=== PATIENT | male | born 1965 | race Caucasian/White ===

== ENCOUNTER 2017-08-08 08:50 | Inpatient (IN) | payer OTHER ==
[~2017-08-08] VITALS: Ht 195.6 cm; Wt 156.0 kg
[2017-08-08] MEDS ORDERED: MELOXICAM7.5 M1 (09:50)
[2017-08-08] MEDS ORDERED: FLE10 PO (09:50)
[2017-08-08 10:22] LABS: T3 TOTAL 0.44 ng/mL
[2017-08-08 10:26] LABS: CK-MB 3.5 ng/mL (0-3.6)
[2017-08-08 10:31] LABS: FREE T4 1.03 ng/dL (0.76-1.46)
[2017-08-08 10:33] LABS: FREE THYROXINE INDEX 1.7 ug/dL (1.4-4.5); T4(THYROXINE) 4.6 ug/dL (4.7-13.3)
[2017-08-08 10:37] LABS: ALKALINE PHOSPHATASE 66 U/L (46-116); ALT/SGPT 40 U/L (16-63); AST/SGOT 68 U/L (15-37); CALCIUM 8.4 mg/dL (8.5-10.1); CARBON DIOXIDE 16.3 mmol/L (21-32); CHLORIDE SERUM 88 mmol/L (98-107); CREATININE SERUM 1.2 mg/dL (0.7-1.3); GFR1 > 60 mL/min; GLUCOSE SERUM 179 mg/dL (74-106); POTASSIUM SERUM 3.9 mmol/L (3.5-5.1); TOTAL PROTEIN, SERUM 8.2 g/dL (6.4-8.2)
[2017-08-08 12:19] LABS: ERYTHROCYTE SED RATE 67 mm/hr (0-20)
[2017-08-08 12:21] LABS: PLATELET COUNT 146 x10^3mcL (130-400)
[2017-08-08 12:24] LABS: BASOPHIL % 0 % (0-2); RED CELL DISTRIBUTION WIDTH 14.8 % (11.5-14.5)
[2017-08-08 12:52] LABS: microscopic required? YES; urine erythrocyte 3+ (NEGATIVE)
[2017-08-08 12:54] LABS: AMPHETAMINE QUAL UR NONE DETECTED (NEG <=1000)
[2017-08-08 13:44] LABS: MAGNESIUM 1.9 mg/dL (1.8-2.4); PHOSPHOROUS 2.8 mg/dL (2.5-4.9)
[2017-08-08 13:46] LABS: CHOLESTEROL/HDL RATIO 2.8
[2017-08-08 14:43] LABS: SODIUM SERUM 121 mmol/L (136-145)
[2017-08-08 17:23] VITALS: BP 160/73
[2017-08-08 18:35] VITALS: BP 160/73
[2017-08-08 19:30] VITALS: BP 175/110
[2017-08-08 20:00] VITALS: BP 94/49
[2017-08-08 23:31] VITALS: BP 126/83
[2017-08-09 03:23] VITALS: BP 108/38
[2017-08-09 07:15] VITALS: BP 105/68
[2017-08-09 08:08] LABS: BASOPHIL % 0 % (0-2); PLATELET COUNT 124 x10^3mcL (130-400); RED CELL DISTRIBUTION WIDTH 15.1 % (11.5-14.5)
[2017-08-09 08:10] LABS: CALCIUM 7.7 mg/dL (8.5-10.1); CHLORIDE SERUM 94 mmol/L (98-107); CREATININE SERUM 0.9 mg/dL (0.7-1.3); GFR1 > 60 mL/min; GLUCOSE SERUM 123 mg/dL (74-106); PHOSPHOROUS 2.3 mg/dL (2.5-4.9); POTASSIUM SERUM 3.3 mmol/L (3.5-5.1); SODIUM SERUM 126 mmol/L (136-145)
[2017-08-09 11:45] VITALS: BP 129/75
[2017-08-09 15:45] VITALS: BP 161/83
[2017-08-09 20:00] VITALS: BP 112/71
[2017-08-09 20:12] LABS: CALCIUM 7.8 mg/dL (8.5-10.1); CARBON DIOXIDE 23.2 mmol/L (21-32); CHLORIDE SERUM 94 mmol/L (98-107); CREATININE SERUM 0.8 mg/dL (0.7-1.3); GFR1 > 60 mL/min; GLUCOSE SERUM 129 mg/dL (74-106); POTASSIUM SERUM 3.3 mmol/L (3.5-5.1); SODIUM SERUM 126 mmol/L (136-145)
[2017-08-10] VITALS (8 sets, daily range): BP systolic 104–155; BP diastolic 70–102
[2017-08-10 05:35] LABS: BASOPHIL % 0.1 % (0-2)
[2017-08-10 05:37] LABS: PLATELET COUNT 119 x10^3mcL (130-400); RED CELL DISTRIBUTION WIDTH 15.4 % (11.5-14.5)
[2017-08-10 05:49] LABS: CALCIUM 8.4 mg/dL (8.5-10.1); CARBON DIOXIDE 21.4 mmol/L (21-32); CHLORIDE SERUM 95 mmol/L (98-107); CREATININE SERUM 0.8 mg/dL (0.7-1.3); GFR1 > 60 mL/min; GLUCOSE SERUM 105 mg/dL (74-106); POTASSIUM SERUM 3.5 mmol/L (3.5-5.1); SODIUM SERUM 128 mmol/L (136-145)
[2017-08-11 03:40] VITALS: BP 137/83
[2017-08-11 05:41] LABS: BASOPHIL % 0 % (0-2); PLATELET COUNT 119 x10^3mcL (130-400); RED CELL DISTRIBUTION WIDTH 15.6 % (11.5-14.5)
[2017-08-11 05:59] LABS: CALCIUM 7.8 mg/dL (8.5-10.1); CHLORIDE SERUM 98 mmol/L (98-107); CREATININE SERUM 0.7 mg/dL (0.7-1.3); GFR1 > 60 mL/min; GLUCOSE SERUM 99 mg/dL (74-106); MAGNESIUM 1.9 mg/dL (1.8-2.4); PHOSPHOROUS 3.3 mg/dL (2.5-4.9); POTASSIUM SERUM 3.1 mmol/L (3.5-5.1); SODIUM SERUM 133 mmol/L (136-145)
[2017-08-11 07:36] VITALS: BP 123/74
[2017-08-11 11:22] VITALS: BP 127/79
[2017-08-11 16:26] VITALS: BP 129/71
[2017-08-11 18:00] VITALS: BP 138/87
[2017-08-11 20:41] VITALS: BP 109/73
[2017-08-12] VITALS: BP 125/92
[2017-08-12 05:22] VITALS: BP 164/95
[2017-08-12 06:08] LABS: PLATELET COUNT 154 x10^3mcL (130-400)
[2017-08-12 06:13] LABS: BASOPHIL % 0 % (0-2); RED CELL DISTRIBUTION WIDTH 15.8 % (11.5-14.5)
[2017-08-12 06:25] LABS: CALCIUM 8.5 mg/dL (8.5-10.1); CHLORIDE SERUM 98 mmol/L (98-107); CREATININE SERUM 0.6 mg/dL (0.7-1.3); GFR1 > 60 mL/min; GLUCOSE SERUM 145 mg/dL (74-106); MAGNESIUM 1.9 mg/dL (1.8-2.4); PHOSPHOROUS 4.1 mg/dL (2.5-4.9); POTASSIUM SERUM 3.5 mmol/L (3.5-5.1); SODIUM SERUM 133 mmol/L (136-145)
[2017-08-12 08:53] LABS: RED BLOOD CELLS 3.68 M/mm3 (4.52-5.90)
[2017-08-12 10:00] VITALS: BP 128/94
[2017-08-12 12:48] LABS: IRON 38 ug/dL (65-170)
[2017-08-12 12:55] LABS: TOTAL IRON BINDING CAPACITY 168 ug/dL (250-450)
[2017-08-12 19:22] VITALS: BP 137/78
[2017-08-12 19:25] VITALS: BP 129/79
[2017-08-13 05:38] VITALS: BP 136/92
[2017-08-13 06:50] LABS: PLATELET COUNT 206 x10^3mcL (130-400)
[2017-08-13 06:59] LABS: BASOPHIL % 0 % (0-2); RED CELL DISTRIBUTION WIDTH 15.4 % (11.5-14.5)
[2017-08-13 07:12] LABS: CALCIUM 8.5 mg/dL (8.5-10.1); CARBON DIOXIDE 26.8 mmol/L (21-32); CHLORIDE SERUM 98 mmol/L (98-107); CREATININE SERUM 0.7 mg/dL (0.7-1.3); GFR1 > 60 mL/min; GLUCOSE SERUM 156 mg/dL (74-106); PHOSPHOROUS 3.5 mg/dL (2.5-4.9); POTASSIUM SERUM 3.2 mmol/L (3.5-5.1); SODIUM SERUM 135 mmol/L (136-145)
[2017-08-13 09:07] VITALS: BP 138/92
[2017-08-13 15:06] VITALS: BP 138/92
[2017-08-13 17:48] VITALS: BP 144/99
[2017-08-13 19:15] VITALS: BP 131/87
[2017-08-14 05:31] VITALS: BP 120/94
[2017-08-14 06:53] LABS: BASOPHIL % 0.2 % (0-2); PLATELET COUNT 281 x10^3mcL (130-400)
[2017-08-14 07:08] LABS: CALCIUM 8.5 mg/dL (8.5-10.1); CARBON DIOXIDE 24.2 mmol/L (21-32); CHLORIDE SERUM 101 mmol/L (98-107); CREATININE SERUM 0.7 mg/dL (0.7-1.3); GFR1 > 60 mL/min; GLUCOSE SERUM 143 mg/dL (74-106); MAGNESIUM 2.2 mg/dL (1.8-2.4); PHOSPHOROUS 3.3 mg/dL (2.5-4.9); POTASSIUM SERUM 3.3 mmol/L (3.5-5.1); SODIUM SERUM 136 mmol/L (136-145)
[2017-08-14 07:26] LABS: RED CELL DISTRIBUTION WIDTH 15.2 % (11.5-14.5)
[2017-08-14 08:22] VITALS: BP 140/102
[2017-08-14 12:45] VITALS: BP 147/88
[2017-08-14 13:42] VITALS: BP 115/89
[2017-08-14 18:12] VITALS: BP 129/96
[2017-08-14 21:28] VITALS: BP 127/100
[2017-08-15 01:03] VITALS: BP 137/101
[2017-08-15 04:30] VITALS: BP 133/96
[2017-08-15 05:05] LABS: BASOPHIL % 0.2 % (0-2); PLATELET COUNT 289 x10^3mcL (130-400)
[2017-08-15 05:09] LABS: RED CELL DISTRIBUTION WIDTH 15.1 % (11.5-14.5)
[2017-08-15 05:11] LABS: CALCIUM 8.6 mg/dL (8.5-10.1); CARBON DIOXIDE 23.4 mmol/L (21-32); CHLORIDE SERUM 98 mmol/L (98-107); CREATININE SERUM 0.7 mg/dL (0.7-1.3); GFR1 > 60 mL/min; GLUCOSE SERUM 126 mg/dL (74-106); PHOSPHOROUS 3.2 mg/dL (2.5-4.9); POTASSIUM SERUM 3.2 mmol/L (3.5-5.1); SODIUM SERUM 133 mmol/L (136-145)
[2017-08-15 09:40] VITALS: BP 122/82
[2017-08-15 12:30] VITALS: BP 91/60; BP 96/60
[2017-08-15 13:45] VITALS: BP 105/74
[2017-08-15 17:42] VITALS: BP 113/86
[2017-08-15 20:06] VITALS: Ht 195.6 cm; Wt 156.0 kg
[2017-08-16 03:46] LABS: CARBON DIOXIDE 23.7 mmol/L (21-32); CHLORIDE SERUM 97 mmol/L (98-107); CREATININE SERUM 0.7 mg/dL (0.7-1.3); GFR1 > 60 mL/min; GLUCOSE SERUM 105 mg/dL (74-106); MAGNESIUM 1.7 mg/dL (1.8-2.4); PHOSPHOROUS 3.3 mg/dL (2.5-4.9); SODIUM SERUM 131 mmol/L (136-145)
[2017-08-16 04:15] VITALS: BP 128/96
[2017-08-16 04:26] LABS: BASOPHIL % 0 % (0-2); PLATELET COUNT 307 x10^3mcL (130-400); RED CELL DISTRIBUTION WIDTH 15.2 % (11.5-14.5)
[2017-08-16 09:09] VITALS: BP 112/76
[2017-08-16 09:53] VITALS: BP 112/76
[2017-08-16 13:50] VITALS: BP 109/79
[2017-08-16 22:00] VITALS: BP 114/86
[2017-08-17 06:10] VITALS: BP 112/87
[2017-08-17 06:13] LABS: BASOPHIL % 0.1 % (0-2); PLATELET COUNT 250 x10^3mcL (130-400)
[2017-08-17 06:28] LABS: CALCIUM 8.5 mg/dL (8.5-10.1); CARBON DIOXIDE 23.8 mmol/L (21-32); CHLORIDE SERUM 99 mmol/L (98-107); CREATININE SERUM 0.7 mg/dL (0.7-1.3); GFR1 > 60 mL/min; GLUCOSE SERUM 109 mg/dL (74-106); MAGNESIUM 2.2 mg/dL (1.8-2.4); PHOSPHOROUS 3.1 mg/dL (2.5-4.9); POTASSIUM SERUM 3.2 mmol/L (3.5-5.1); SODIUM SERUM 132 mmol/L (136-145)
[2017-08-17 07:03] LABS: RED CELL DISTRIBUTION WIDTH 15.3 % (11.5-14.5)
[2017-08-17 08:22] VITALS: BP 111/77
[2017-08-17 16:44] VITALS: BP 109/73
[2017-08-17 21:22] VITALS: BP 89/65
[2017-08-18] VITALS (8 sets, daily range): BP systolic 85–129; BP diastolic 55–88
[2017-08-18 07:41] LABS: BASOPHIL % 0.3 % (0-2); PLATELET COUNT 256 x10^3mcL (130-400)
[2017-08-18 07:47] LABS: RED CELL DISTRIBUTION WIDTH 14.9 % (11.5-14.5)
[2017-08-18 07:53] LABS: CALCIUM 7.9 mg/dL (8.5-10.1); CARBON DIOXIDE 22.2 mmol/L (21-32); CHLORIDE SERUM 98 mmol/L (98-107); CREATININE SERUM 0.6 mg/dL (0.7-1.3); GFR1 > 60 mL/min; GLUCOSE SERUM 101 mg/dL (74-106); MAGNESIUM 1.8 mg/dL (1.8-2.4); POTASSIUM SERUM 3.2 mmol/L (3.5-5.1); SODIUM SERUM 132 mmol/L (136-145)
[2017-08-19] VITALS (7 sets, daily range): BP systolic 100–121; BP diastolic 61–86
[2017-08-19 06:41] LABS: BASOPHIL % 0.4 % (0-2); PLATELET COUNT 247 x10^3mcL (130-400)
[2017-08-19 06:42] LABS: RED CELL DISTRIBUTION WIDTH 15.4 % (11.5-14.5)
[2017-08-19 07:10] LABS: CALCIUM 8.5 mg/dL (8.5-10.1); CARBON DIOXIDE 24.5 mmol/L (21-32); CHLORIDE SERUM 99 mmol/L (98-107); CREATININE SERUM 0.7 mg/dL (0.7-1.3); GFR1 > 60 mL/min; GLUCOSE SERUM 113 mg/dL (74-106); MAGNESIUM 1.6 mg/dL (1.8-2.4); PHOSPHOROUS 3.5 mg/dL (2.5-4.9); POTASSIUM SERUM 3.5 mmol/L (3.5-5.1); SODIUM SERUM 132 mmol/L (136-145)
[2017-08-19 13:49] LABS: T3 TOTAL 0.69 ng/mL
[2017-08-19 13:51] LABS: FREE T4 1.46 ng/dL (0.76-1.46); FREE THYROXINE INDEX 2.6 ug/dL (1.4-4.5); T4(THYROXINE) 6.5 ug/dL (4.7-13.3)
[2017-08-20 05:56] VITALS: BP 101/74
[2017-08-20 06:47] LABS: BASOPHIL % 0.6 % (0-2); PLATELET COUNT 260 x10^3mcL (130-400)
[2017-08-20 06:49] LABS: RED CELL DISTRIBUTION WIDTH 15.3 % (11.5-14.5)
[2017-08-20 07:11] LABS: CALCIUM 8.3 mg/dL (8.5-10.1); CARBON DIOXIDE 25.6 mmol/L (21-32); CHLORIDE SERUM 96 mmol/L (98-107); CREATININE SERUM 0.7 mg/dL (0.7-1.3); GFR1 > 60 mL/min; GLUCOSE SERUM 105 mg/dL (74-106); MAGNESIUM 1.5 mg/dL (1.8-2.4); PHOSPHOROUS 4.4 mg/dL (2.5-4.9); POTASSIUM SERUM 3.6 mmol/L (3.5-5.1); SODIUM SERUM 132 mmol/L (136-145)
[2017-08-20 10:13] VITALS: BP 108/64
[2017-08-20 14:20] VITALS: BP 116/63
[2017-08-20 16:20] VITALS: BP 116/63
[2017-08-20] MEDS ORDERED: FLE10 PO (16:25)
[2017-08-20] MEDS ORDERED: LIPI20 PO (16:27)
[2017-08-20] MEDS ORDERED: XARELTO15 M1 PO (16:27)
[2017-08-20] MEDS ORDERED: DILTIAZEM30 M1 PO (16:28)
[2017-08-20] MEDS ORDERED: LOP50 PO (16:28)
[2017-08-20] MEDS ORDERED: MOBIC PO (16:28)
[2017-08-20] MEDS ORDERED: LIB25 PO (16:29)
[2017-08-20] MEDS ORDERED: SERTRALINE50 M1 PO (16:29)
[2017-08-20] MEDS ORDERED: MAG PO (16:30)
[2017-08-20] MEDS ORDERED: LAC PO (16:30)
[2017-08-20] MEDS ORDERED: FOL1 PO (16:31)
[2017-08-20] MEDS ORDERED: THERA TABS1 TAB PO (16:31)
[2017-08-20] MEDS ORDERED: THI100 PO (16:31)
== END 2017-08-20 19:57 | DRG 720 ==
LOC: ED 08:50 → IC 12:02 → DU 08-11 17:54
PROVIDERS: Family Medicine; Family Medicine Sports Medicine; Specialist; Student in an Organized Health Care Education/Training Program
PROC: 02HV33Z Insertion of Infusion Device into Superior Vena Cava, Percutaneous Approach (ICD-10-PCS; principal; 2017-08-09)
DX: A40.9 Streptococcal sepsis, unspecified (principal); I26.99 Other pulmonary embolism without acute cor pulmonale; N17.0 Acute kidney failure with tubular necrosis; J96.01 Acute respiratory failure with hypoxia; R65.21 Severe sepsis with septic shock; M62.82 Rhabdomyolysis; E43 Unspecified severe protein-calorie malnutrition; J15.4 Pneumonia due to other streptococci; Z68.41 Body mass index [BMI] 40.0-44.9, adult; E83.51 Hypocalcemia; I48.91 Unspecified atrial fibrillation; B35.1 Tinea unguium; E51.2 Wernicke's encephalopathy; L03.116 Cellulitis of left lower limb; E87.1 Hypo-osmolality and hyponatremia; I10 Essential (primary) hypertension; R74.0 Nonspecific elevation of levels of transaminase and lactic acid dehydrogenase [LDH]; R31.9 Hematuria, unspecified; K80.20 Calculus of gallbladder without cholecystitis without obstruction; Y90.9 Presence of alcohol in blood, level not specified; E66.9 Obesity, unspecified; Z99.81 Dependence on supplemental oxygen; Z80.41 Family history of malignant neoplasm of ovary; Z80.42 Family history of malignant neoplasm of prostate; F10.239 Alcohol dependence with withdrawal, unspecified; Z71.41 Alcohol abuse counseling and surveillance of alcoholic; R13.10 Dysphagia, unspecified; E87.6 Hypokalemia; E83.42 Hypomagnesemia; D64.9 Anemia, unspecified
CPT/HCPCS: 36556; 36600; 82962; 83880; 84439; 92610-GN; 97110-GP; 97116-GP; 97530-GP; C9113; G0480; J0132; J0153; J0696; J1170; J1630; J1642; J1644; J1885; J1940; J2060; J2543; J2916; J2920; J3411; J3430; J3475; J3480; J3486; J3490; J7030; J7050; J7620; Q0092; Q9967

== ENCOUNTER 2018-10-20 11:41 | Emergency (ER) | payer OTHER ==
[~2018-10-20] VITALS: Ht 195.6 cm; Wt 154.2 kg
[~2018-10-20 11:41] MED LIST: DILTIAZEM30 M1 PO; FLE10 PO; FOL1 PO; LAC PO; LIB25 PO; LIPI20 PO; LOP50 PO; MAG PO; MELOXICAM7.5 M1; MOBIC PO; SERTRALINE50 M1 PO; THERA TABS1 TAB PO; THI100 PO; XARELTO15 M1 PO
[2018-10-20 11:52] VITALS: Ht 195.6 cm; Wt 154.2 kg
[2018-10-20 14:40] LABS: BASOPHIL % 0.3 % (0-2); PLATELET COUNT 243 x10^3mcL (130-400)
[2018-10-20 14:41] LABS: RED CELL DISTRIBUTION WIDTH 16.3 % (11.5-14.5)
[2018-10-20 14:55] LABS: CARBON DIOXIDE 29.5 mmol/L (21-32); CHLORIDE SERUM 87 mmol/L (98-107); CREATININE SERUM 0.8 mg/dL (0.7-1.3); GFR1 > 60 mL/min; GLUCOSE SERUM 98 mg/dL (74-106); POTASSIUM SERUM 4.4 mmol/L (3.5-5.1)
[2018-10-20 14:58] LABS: ALBUMIN 3.4 g/dL (3.4-5.0); BILIRUBIN DIRECT 0.46 mg/dL (0.0-0.2)
[2018-10-20 15:05] LABS: SODIUM SERUM 121 mmol/L (136-145)
[2018-10-20 16:10] VITALS: BP 120/78
== END 2018-10-20 16:10 | disposition home or self-care (01) ==
LOC: ED 11:41
PROVIDERS: Emergency Medicine
DX: R60.0 Localized edema (principal); K70.30 Alcoholic cirrhosis of liver without ascites; I11.0 Hypertensive heart disease with heart failure; I50.9 Heart failure, unspecified; E78.00 Pure hypercholesterolemia, unspecified
CPT/HCPCS: 36415; 83880; Q0092

== ENCOUNTER 2019-06-21 21:45 | Inpatient (IN) | payer OTHER ==
[~2019-06-21] VITALS: Ht 195.6 cm; Wt 163.9 kg
--- NOTE | 2019-06-21 21:47 | NUR ---
PT TAKEN TO RM 5 FOR BEDSIDE TRIAGE.
--- NOTE | 2019-06-21 22:06 | NUR ---
CONSENT FOR BLOOD TRANSFUSION SIGNED AND IN CHART.
--- NOTE | 2019-06-21 22:11 | NUR ---
PT PRESENTS TO ED WITH C/C HEMOPTYSIS X1 EPISODE 30 MIN WELDING MACHINE OPERATOR ARC. BRIGHT RED BLOOD. PT REPORTS FEELINGS OF DIZZINESS X1 DAY. STS "I KIND OF HAD DARK STOOL YESTERDAY BUT IM NOT SURE." PT IS AAOX4. RESP E/U. DENIES ACUTE WORSENING SOB. REPORTS HX OF CHF AND STS "I AM ALWAYS SHORT OF BREATH." PT APPEARS PALE, NORMAL SKIN TONE PER FAMILY. UNABLE TO STATE HOW MANY EPISODES OF DARK STOOL. PT WAS BROUGHT IN BY WHEELCHAIR FROM THE PARKING LOT. APPEARS GENERALLY WEAK, PT DENIES WEAKNESS. BLE WOUNDS WITH DRESSINGS INTACT. PIV INITIATED TO RAC, 20G. CONNECTED TO FULL CM. DR TORRES AT BEDSIDE FOR MSE.
--- NOTE | 2019-06-21 22:14 | NUR ---
PT IS ON BLOOD THINNER, XARELTO. DR TORRES AWARE.
--- NOTE | 2019-06-21 22:15 | NUR ---
LAB AT BEDSIDE.
[2019-06-21 22:19] LABS: BASOPHIL % 0.5 % (0-2); PLATELET COUNT 144 x10^3mcL (130-400)
[2019-06-21 22:21] LABS: RED CELL DISTRIBUTION WIDTH 15.6 % (11.5-14.5)
--- NOTE | 2019-06-21 22:21 | NUR ---
XRAY AT BEDSIDE.
[2019-06-21 22:39] LABS: ALBUMIN 3.2 g/dL (3.4-5.0); ALKALINE PHOSPHATASE 71 U/L (46-116); ALT/SGPT 24 U/L (16-63); AST/SGOT 33 U/L (15-37); BILIRUBIN TOTAL 0.7 mg/dL (0.20-1.00); CALCIUM 7.9 mg/dL (8.5-10.1); CARBON DIOXIDE 25.9 mmol/L (21-32); CHLORIDE SERUM 87 mmol/L (98-107); CREATININE SERUM 0.8 mg/dL (0.7-1.3); GFR1 > 60 mL/min; GLUCOSE SERUM 141 mg/dL (74-106); TOTAL PROTEIN, SERUM 7.9 g/dL (6.4-8.2)
[2019-06-21 22:41] LABS: SODIUM SERUM 123 mmol/L (136-145)
--- NOTE | 2019-06-21 22:46 | NUR ---
PATIENT TAKEN TO CT.
[2019-06-21] MEDS ORDERED: DILTIAZEM HCL240 MG PO (22:54)
--- NOTE | 2019-06-21 23:26 | NUR ---
PATIENT INSTRUCTED MULTIPLE TIMES NOT TO STAND UP AND URINATE DUE TO RISK OF FALLING. PT REFUSES TO SIT/LAY DOWN AND URINATE. DR TORRES AWARE. SON AT BEDSIDE TO ASSIST PATIENT TO STAND AGAINST ADVICE.
--- NOTE | 2019-06-21 23:41 | NUR ---
DR TORRES AT BEDSIDE TO UPDATE PATIENT.
--- NOTE | 2019-06-22 00:38 | NUR ---
PT HAD VOMITING EPISODE X2 OF APPROX 250CC FRESH BLOOD WITH LARGE CLOTS. DR TORRES AT BEDSIDE. PT STS "WOW THAT WAS A LOT OF BLOOD." PT REMAINS AAOX4. NG TUBE PLACED IN LEFT NARE PER DR TORRES VERBAL ORDER. AMELIE RN PLACED NG TUBE, CONFIRMED PLACEMENT AUSCULTATION X2 RN'S. NG TUBE CONNECTED TO CONTINUOUS SUCTION, BRIGHT RED BLOOD OUTPUT. PT GOWN CHANGED AND PATIENT CLEANED UP. PATIENT REFUSED INTUBATION PER DR TORRES RECOMMENDATION. FAMILY REMAINS AT BEDSIDE. WILL CONTINUE TO MONITOR CLOSELY.
--- NOTE | 2019-06-22 00:43 | NUR ---
XRAY AT BEDSIDE.
--- NOTE | 2019-06-22 01:05 | NUR ---
PT INSTRUCTED HE CANNOT URINATE STANDING UP. PT CONTINUES TO ASK "WHY" PT INSTRUCTED ON SAFETY. BOTH SIDE RAILS UP AT THIS TIME. FAMILY AT BEDSIDE. PT IN PLAIN VIEW. WILL CONTINUE TO CLOSELY MONITOR.
[2019-06-22 01:12] LABS: BASOPHIL % 0.3 % (0-2); PLATELET COUNT 133 x10^3mcL (130-400); RED CELL DISTRIBUTION WIDTH 15.6 % (11.5-14.5)
[2019-06-22 01:30] LABS: CHOLESTEROL/HDL RATIO 2.5
--- NOTE | 2019-06-22 02:28 | NUR ---
PT TRANSFERED FROM ED BY RN VIA [facility]LVESTER. SR
[2019-06-22 03:59] VITALS: BP 110/68
[2019-06-22 05:34] LABS: CALCIUM 7.9 mg/dL (8.5-10.1); CARBON DIOXIDE 24.4 mmol/L (21-32); CHLORIDE SERUM 89 mmol/L (98-107); CREATININE SERUM 0.7 mg/dL (0.7-1.3); GFR1 > 60 mL/min; GLUCOSE SERUM 141 mg/dL (74-106); MAGNESIUM 1.7 mg/dL (1.8-2.4); PHOSPHOROUS 3.4 mg/dL (2.5-4.9); POTASSIUM SERUM 4.6 mmol/L (3.5-5.1)
[2019-06-22 05:37] LABS: SODIUM SERUM 123 mmol/L (136-145)
[2019-06-22 05:48] LABS: BASOPHIL % 0.2 % (0-2); PLATELET COUNT 122 x10^3mcL (130-400); RED CELL DISTRIBUTION WIDTH 15.3 % (11.5-14.5)
[2019-06-22 07:15] VITALS: BP 111/62
--- NOTE | 2019-06-22 07:40 | NUR ---
1ST UNIT OF PRBC'S VERIFIED BY 2RNS. SEE BLOOD BANK FOR DETAILS. WILL CONT TO MONITOR FOR ADVERSE REACTIONS
--- NOTE | 2019-06-22 07:55 | NUR ---
15MIN POST TRANSFUSION ASSESSMENT WITH NO ADVERSE REACTIONS. WILL CONT TO MONITOR/ASSESS
--- NOTE | 2019-06-22 09:04 | NUR ---
INSERTED NEW PIV TO L HAND 18G. NO S/SX OF INFILTRATION, GOOD BLOOD RETURN, FLUSHES WELL.
--- NOTE | 2019-06-22 09:29 | NUR ---
DR. GRAVES AND RESIDENTS AT BEDSIDE FOR PT ROUNDS AT THIS TIME. NURSING UPDATES. NO NEW ORDERS.
--- NOTE | 2019-06-22 09:30 | NUR ---
ULTRASOUND AT BEDSIDE
[2019-06-22 10:35] LABS: microscopic required? NO
[2019-06-22 11:11] LABS: urine erythrocyte NEGATIVE (NEGATIVE)
--- NOTE | 2019-06-22 11:30 | NUR ---
PATIENT'S NGT NOTED TO BE OUT OF PLACE. NGT REMOVED AND TO BE REINSERTED.
[2019-06-22 11:33] LABS: AMPHETAMINE QUAL UR NONE DETECTED (See below)
--- NOTE | 2019-06-22 11:37 | NUR ---
PT HAVING A PANIC ATTACK AT THIS TIME AND TRYING TO GRAB CONFERENCE SERVICES MANAGER WHILE TRYING TO INSERT NGT. 2MG ATIVAN IVP GIVEN AT THIS TIME.
[2019-06-22 11:48] VITALS: BP 102/69
--- NOTE | 2019-06-22 11:57 | NUR ---
TELEPHONED PATIENT'S MOTHER RANI AT PATIENT'S REQUEST FOR "EMOTIONAL SUPPORT." RANI STATED THAT SHE WILL BE COMING BACK SOON. PATIENT MADE AWARE.
[2019-06-22 12:16] LABS: BASOPHIL % 0 % (0-2); PLATELET COUNT 123 x10^3mcL (130-400); RED CELL DISTRIBUTION WIDTH 15.9 % (11.5-14.5)
--- NOTE | 2019-06-22 12:50 | NUR ---
2ND UNIT OF PRBC'S VERIFIED BY PRIMARY RN AND FLOSSER. SEE BLOOD BANK SHEET FOR DETAILS. PRBC BEING INITIATED AT THIS TIME.
--- NOTE | 2019-06-22 13:05 | NUR ---
15 MIN POST TRANSFUSION ASSESSMENT. NO ADVERSE REACTIONS NOTED. SEE BLOOD BANK SHEET FOR MORE DETAILS. WILL CONT TO MONITOR AND ASSESS
--- NOTE | 2019-06-22 13:30 | NUR ---
PATIENT'S MOTHER, SHANTELL LUCAS AND MYSELF AT BEDSIDE TO ATTEMPT PLACEMENT OF NGT. PATIENT IN UPRIGHT POSITION. ATTEMPTED TO INSERT #16 CZECH NGT TO LEFT NARE. PATIENT BEGAN COUGHING AND GAGGING AND THROWING ARMS AROUND IN SPITE OF HIS MOTHER AND NURSING ATTEMPTING TO CALM HIM. NGT PLACEMENT UNSUCCESSFUL AGAIN. WILL CONTINUE TO MONITOR.
--- NOTE | 2019-06-22 14:38 | NUR ---
ECHOCARDIOGRAM PENDING-NURSE WITH PATIENT
--- NOTE | 2019-06-22 15:01 | NUR ---
PT ANXIOUS AND RESTLESS. 2MG ATIVAN IVP GIVEN AT THIS TIME
[2019-06-22 15:24] VITALS: BP 135/89
--- NOTE | 2019-06-22 15:26 | NUR ---
PT SLEEPING AND MOUTH BREATHING. PT PLACED ON 3L NASAL CANNULA.
--- NOTE | 2019-06-22 16:05 | NUR ---
DR DIALLO (PODIATRY) AT BEDSIDE TO ASSESS PATIENT'S BLE'S. NEW DRESSINGS APPLIED BY DR DIALLO.
--- NOTE | 2019-06-22 18:21 | NUR ---
PT RESTING IN BED W/ BOTH EYES CLOSED. NO S/S OF ACUTE DISTRESS. VS STABLE. O2 SAT 99% ON 2LNC. BP 123/72. HR 112. NO C/O PAIN. CALM/COOPERATIVE AT THIS TIME. IVS WNL. IV FLUIDS FLOWING PER AUG. HOB ELEVATED. BED IN LOW POSITION. CALL LIGHT WITHIN REACH. WILL ENDORSE TO ONCOMING SHIFT.
--- NOTE | 2019-06-22 18:24 | NUR ---
REPORTED TO DR LICONA MOST RECENT H & H. PER DR LICONA, TRANSFUSE 1 MORE UNIT OF PRBC'S. WILL RECHECK LABS AT 0500 ON 06/23/19.
--- NOTE | 2019-06-22 19:20 | NUR ---
RECEIVED PT FROM PREVIOUS SHIFT NURSE. PT AOX4, DENIES WAGNER/DIZZINESS. ON MONITOR #3, READING ST/AFIB, HR 114, DENIES CP/PRESSURE. DENIES SOB/DIFFICULTY BREATHING ON 2L NC. IVS NOTED TO LAC, RAC, AND L. HAND, INTACT AND PATENT. PT INCONTINENT, BLACK TARRY STOOL NOTED. BED IN LOWEST POSITION. CALL LIGHT WITHIN REACH. WILL CONTINUE TO MONITOR.
[2019-06-22 19:54] VITALS: BP 133/74
--- NOTE | 2019-06-22 22:01 | NUR ---
3RD UNIT OF PRBC INITIATED PER ORDERS. PT PRE TRANSFUSION VITAL SIGNS STABLE. VERIFIED BLOOD WITH SECOND RN. INFUSION INITIATED AT 60ML/H. EDUCATED PT ON BLOOD TRANSFUSION REACTION SYMPTOMS. PT VERBALIZED UNDERSTANDING.
--- NOTE | 2019-06-22 22:13 | NUR ---
INCREASED TRANFUSION TO 120ML/H. PT TOLERATING WELL AT THIS TIME. DENIES ANY TRANSFUSION REACTION SYMPTOMS. VITAL SIGNS REMAIN STABLE AT THIS TIME. BED IN LOWEST POSITION. CALL LIGHT WITHIN REACH. WILL CONTINUE TO MONITOR.
--- NOTE | 2019-06-22 23:00 | NUR ---
PT HAD 2 EPISODES OF LARGE AMOUNTS OF BLACK TARRY LIQUID STOOLS.
[2019-06-22 23:08] VITALS: BP 131/77
--- NOTE | 2019-06-23 00:30 | NUR ---
BLOOD TRANSFUSION COMPLETE AT THIS TIME. PT TOLERATED WELL. IN NO ACUTE DISTRESS. VITAL SIGNS REMAIN STABLE.
--- NOTE | 2019-06-23 01:24 | NUR ---
PT RESTING IN BED. RR EVEN AND UNLABORED. IN NO ACUTE DISTRESS. CALL LIGHT WITHIN REACH. WILL CONTINUE TO MONITOR.
[2019-06-23 03:09] VITALS: BP 110/78
[2019-06-23 05:37] LABS: BASOPHIL % 0.2 % (0-2)
[2019-06-23 05:44] LABS: CALCIUM 8.3 mg/dL (8.5-10.1); CARBON DIOXIDE 28.2 mmol/L (21-32); CHLORIDE SERUM 94 mmol/L (98-107); CREATININE SERUM 0.7 mg/dL (0.7-1.3); GFR1 > 60 mL/min; GLUCOSE SERUM 127 mg/dL (74-106); MAGNESIUM 1.9 mg/dL (1.8-2.4); PHOSPHOROUS 2.7 mg/dL (2.5-4.9); POTASSIUM SERUM 3.6 mmol/L (3.5-5.1); SODIUM SERUM 127 mmol/L (136-145)
[2019-06-23 05:47] LABS: PLATELET COUNT 126 x10^3mcL (130-400); RED CELL DISTRIBUTION WIDTH 17.5 % (11.5-14.5)
--- NOTE | 2019-06-23 06:38 | NUR ---
PT REMAINED STABLE THROUGHTOUT THE NIGHT. NO ACUTE CHANGES NOTED. BED IN LOWEST POSITION. CALL LIGHT WITHIN REACH. WILL ENDORSE CARE TO ONCOMING SHIFT NURSE.
[2019-06-23 08:00] VITALS: BP 116/79
--- NOTE | 2019-06-23 08:00 | NUR ---
RECEIVED PATIENT FOR EGD TODAY. REQUESETD INFORMATION BY TE GI TEAM AND THEY CAME TO SET UP AND THE PATEIENT HAD SENT AWAY THE WASTE MACHINE OPERATOR DUE OT THE PROCEDURE WAS TO HAPPEN TODAY. THE PATIENT IS ANXIOUS BUT DID GET ATIVAN INDICATED. PATIENT HAS DIMINISHED BREATH SOUNDS AND BOLSWE SOUNDS ARE HYPOACDTIVE AND ABDOMEN IS DISTENDED AND MODERATLY FIRM. ROGELIO HERNANDEZ NOTED ARISTEO OF THREE PLUS TO THE LOWER EXTREMITIES AND WITH REDDENED AND FLAKEY APPEARANCE AND HAS NOTED STASIS ULCER LIKE APPEARANCE. THE PATEN THAS APPARENTLY WRAPPING TO THE LEGS AND THIS WAS REMOVED BY PODIATRY. PATIENT HAS BEEN NON AMBULATORY FOR NOW DU EOT WEAKNESS. NO ACTIVE BLEEDING AT THIS TIME BUT HAS HAD BLEEDING THAT BROUGHT HIOM TO THE ER AND THE PATIEN THAS THREE UNITS OF BLOOD OVER NIGHT. REPORTED THE PATIENT HAS DARK BLACK STOOL AND BLOODY NOSE AND ORAL. AT THIS TIME NO ACTIVE BLEEDING. IV INTACT AND PATIENT HAS BEEN ON 02 AND THE SATURATION IS AT 99% AT THIS TIME. VITALS ARE AT THIS TIME AT 124, 99%, 98.7, 116/79, 14. NO COMPLAINTS OF PAIN AT THIS TIME. HE HAS BEEN AFIB ON THE MONITOR. NPO AT THIS TIME FOR EGD TODAY.
--- NOTE | 2019-06-23 09:53 | NUR ---
PATIENT SIGNED CONSENT FOR EGD ALONG WITH THE SEDATION. CHECKLIST COMPLETED BUT NOW DR MCGILL WILL NOT BE DOING TILL 1030. SISTER AT BEDSIDE AND IS GOING HOME AND WILL RETURN FO RTHE PROCEDURE. PATEINT IS ANXIOUS ABOUT THE PROCEDURE AND WANTS ATIVAN PRIOR. GAVE REPORT TO THE GI STAFF ALREADY INDICATED.
[2019-06-23 10:16] VITALS: Ht 195.6 cm; Wt 163.9 kg
--- NOTE | 2019-06-23 10:23 | NUR ---
SISTER RETURNED TO BEDSIDE AND THE PATIENT IS RESTING QUIETLY AT THIS TIME. THE RESIDENTS SAW THE PATIENT AND SISTER DISCUSSED WITH DR GRAVES THE PLAN OF CARE. REMAINS WITH VITALS AT THIS TIE AT 119, 99%, 12, 103/62. WILL CONTINUE TO MONITOR.
--- NOTE | 2019-06-23 10:47 | NUR ---
PATIENT ROUNDS WITH DR. MENDOZA AND RESIDENTS. CHARGE NURSE AND PRIMARY NURSE AT BEDSIDE. UPDATES PROVIDED AND POC DISCUSSED. WILL CONTINUE TO MONITOR.
--- NOTE | 2019-06-23 11:57 | NUR ---
MICROBILOGY CALLED WITH POSITIVE RESULTS FOR MRSA NARES. DR. FAM MADE AWARE AND PLACED PATIENT IS CONTACT ISOLATION. SHAYY GREER MADE AWARE. WILL CONTINUE TO MONITOR.
[2019-06-23 12:00] VITALS: BP 122/74
--- NOTE | 2019-06-23 12:23 | NUR ---
1. Recommend progressing to clear liquid diet post procedure.
--- NOTE | 2019-06-23 12:23 | NUR ---
CALLED THE GI LAB AGAIN AND THE DOCTOR HAS NOT ARRIVED YET. PATIENT HAS BEEN WAITING SINCE 1030 FOR THE GI PROCEDURE. THE MOTHER AT BEDSIDE IS GETTING UPSET AND WANTS TO KNOW ABOUT WHY THE PATIENT HAS HIS DRESSINGS REMOVED FROM THE LEG AND WHY THE ECHO RESULTS ARE NOT IN AND WHY THE GI DOCTYOR HAS NO COME TO DO THE PROCEDURE. PATIENT IS WANTING TO GET UP AND STAFF AND HIS MOTHER AT [facility] FEEL HE IS TOO WEAK TO DO SO AT THIS TME. CALED THE PODIATRY RESIDENT AND AWAITING CALL BACK FOR ORDERS FOR THE LEGS.
--- NOTE | 2019-06-23 12:23 | NUR ---
Initial Nutrition Assessment: IC03/A GWENDOLYN JAMIL HR Dx: GI Bleed PMHx: alcoholism, CHF, Atrial fibrillation on blood thinner, PE and hypertension PSHx: None Labs: NA 127L, BG 127H, Ammonia 77H, CA 8.3L, HGB 9.1L Meds: Ativan, Cardizem, Colace, folic acid, lactulose, Lipitor, Lopressor, vitamin B-1, zofran Diet: NPO for EGD, (06/22) clear liquid PO intake since admission: NPO Ht: 195.58 cm (77") Wt: 163.8 kg (360#) BMI: 42.8 kg/m2 Bed scale: 163.8 kg IBW: 208# (95 kg) %IBW: 173 UBW: 360# Age: 54/M Food Allergies: NKFA Skin: BLE discoloration Ramirez: 17 Edema: +2 BLE GI: Last BM: 06/23 Per H&P, Pt is a 54-year-old Male with a history of alcoholism, CHF, Atrial fibrillation on blood thinner and hypertension presents to ED for hematemesis x1 with bright red blood around 9.30 PM last night. Patient stated that he noticed dark, tarry stool and experienced dizziness and generalized weakness yesterday. RD Note (06/23): Patient was alert, awake and oriented. Patient is NPO for EGD. Per RN Ruth, pt had severe hematemesis at before coming to ED and also in the ED. Per progress note (06/23), Patient pulled out NG tube and refused re-inserting a new one. H/H .07/25. Had multiple BM of black tarry stool last night. Problem with: N/V/D/C: black tarry stools, no N/V. Problems with: Chewing: Swallowing: none Current appetite: poor Recent wt change: none %wt change: n/a Vitamin/Supplement use: none Special diet at home: Regular Physical activity: sedentary Nutrition education given: none at this time Food-drug interactions: none Education given: n/a Estimated Nutritional Needs Based on ideal body weight (95 kg) Energy: 4202-5354 kcal/day (25-30 kcal/kg for maintenance) Protein: 95-114 g/day (1.0-1.2 g/kg for maintenance) Fluid: 6556-2552 mL/day (1 mL/kcal) Nutrition Diagnosis: 1. Altered GI function related to medical condition as evidenced by hematemesis, GI bleed. 2. Impaired nutrient utilization related to medical condition, possible endocrine insufficiency as evidenced by ammonia 77H Intervention 1. Recommend progressing to clear liquid diet post procedure. Monitor/Evaluate Goal: PO intake at least 75% of estimated needs Monitor: PO intake, Labs, GI function F/U in 2-3 days as high risk 06/25-
--- NOTE | 2019-06-23 12:29 | NUR ---
CALLED THE GI LAB AGAIN AND THE DOCTOR HAS NOT ARRIVED YET. PATIENT HAS BEEN WAITING SINCE 1030 FOR THE GI PROCEDURE. THE MOTHER AT BEDSIDE IS GETTING UPSET AND WANTS TO KNOW ABOUT WHY THE PATIENT HAS HIS DRESSINGS REMOVED AND WHY THE ECHO RESULTS ARE NOT IN AND WHY THE GI DOCTOR HAS NOT COME TO DO THE PROCEDURE. PATIENT IS WANTING TO GET UP AND STAFF AND HIS MOTHER AT [facility] FEEL HE IS TOO WEAK TO DO SO AT THIS TME. CALED THE PODIATRY RESIDENT AND AWAITING CALL BACK FOR ORDERS FOR THE LEGS. = Note Type Description
--- NOTE | 2019-06-23 12:53 | NUR ---
CHARGE NURSE CALLED THE RESIDENT TO GET IN TOUCH WITH THE PODIATRY RESIDENT FOR WHAT TO DO ABOUT THE LEGS THE FAMILY IS VERY ANXIOUS ABOUT THE LEGS ARE NOT WITH DRESSING AND HAVE BEEN LEFT DUE TO THE PATIENT RESQUESTING NOT TO HAVE THE DRESSING CHANGE THE GI IS TO BE DOING A PROCEDURE NOW. THE GI PROCEDURE HAS NOT HAPPENED AND THE PATIENT NEEDS DRESSING AND TREATMENT TO THE LEG. PER THE MOTHER AT BEDSIDE THE PATIENT HAS BEEN HAVING EVELYN BOOTS PLACED AND HAS BEEN USING FOR 6 MONTHS NOW. PATIENT HAS REMAINED NPO AND DID GIVE THE MEDICAITONS ALL BUT THE LACTULOSE THIS WILL CAUSE DIARRHEA OF WHICK MAY BE UNWANTED AT THIS TIME. PATIENT ADMITS HE DISMISSED THE PODIATRY EALIER. AWAITING A CALL BACK FROM THE RESIDENT ON THE PLAN OF CARE. EXPLAINED THAT THE GI PROCEDURE WAS ON HOLD TILL DR MCGILL WILL BE IN TO PREFORM.
--- NOTE | 2019-06-23 15:39 | NUR ---
PATIENT HAD EGD AT BEDSIDE AND TOLERATED WELL. NOW HE IS TO BE TRANSFER TO THE FLOOR AND TO ROOM 258B. PATIENT HAS THREE BANDINGS OF ESOPHAGEAL VARICIES AND HAS HAD NO ACTIVE BLEELDING. PATIENT DENIES PAIN AND HAS BEEN RESTING QUIETLY POST THE PROCEDURE. MOTHER AT BEDSWDIE AND WAS AWARE OF THE RESULTS AND WILL RETURN TO THE HOSPITAL [facility] TODAY. PATIENT IS NOW FULLY AWAKE. VISITOR AT BEDSIDE. BP WAS LOW BUT IS AT 108/54. PATIENT IS ANXIOUS ABOUT GOING UP TO THE SECOND FLOOR BUT MEETS THE CRITERI FOR TRANSFER.
[2019-06-23 17:00] VITALS: BP 119/71
--- NOTE | 2019-06-23 17:21 | NUR ---
COUNTER INTELLIGENCE TECHNICIAN OIL FIELD LABORER CALLED BACK AND WANTED TO REDRESS AFTER CLEANSING OF HTE LEG. STAFF HAD CHANGED THE DRESSING OT HE REMAINDING LEG AFTER CLEANING THOROUGHLY THE LEG AND INFORCED WITH TAMEKA WRAP. GAVE REPORT TOEH STAFF IN THE [place] AND ETELVINA PATEL TO GO TO 256 ON THE FLOOR. PATIENT WILL RECEIVE TH ROCEHIN AND THE DOSEING OF LACTURLOSE AND THE PROPANOLOL PRIOR TO THE TRANSEFER. PATIENT TOLERATED WELL.
--- NOTE | 2019-06-23 19:03 | NUR ---
AT 181 - RECEIVED PATIENT FROM ICU NURSE. SETTLED IN ROOM, ORIENTED TO SURROUNDING AND PLACED ON CARDIAC MONITORING TELE # 16. PATIENT IS AWAKE, ALERT AND ORIENTED X 4. RESPIRATIONS REGULAR. VS WNL. IV INFUSING ROCEPHIN. AT 183 - PATIENT'S AT BEDSIDE. REPORTED TO NURSE THAT PATIENT IS A FALL RISK BECAUSE HE DOES NOT CALL FOR NURSE BUT TENDS TO ATTEMPT GETTING OUT OF BED ALONE. BED EXIT ALARM ACTIVATED. PLACED ON CONTACT ISOLATION FOR ACTIVE MRSA NARES. TO COMMENCE TREATMENT TONIGHT. WILL ENDORSE CARE TO NIGHT NURSE.
--- NOTE | 2019-06-23 20:10 | NUR ---
RECEIVED PT AWAKE AND VERBALLY RESPONSIVE. ABLE TO MAKE NEEDS KNOWN. SKION WARM AND DRY TO TOUCH. RESPIRATION EVEN AND UNLABORED. ON TYELE #16 WITH AFIB DENIES ANY CHEST PAIN/DISCOMFORT. BLE WITH 2+EDEMA. CAREGIVER AT BEDSIDE. INSTRUCTED PATIENT TO USE CALL LIOGHT TO COMMUNICATE NEEDS, PT VERBLIZED UNDERSTANDING. WILL CONTINUE TO MONITOR.
[2019-06-23 21:08] VITALS: BP 105/76
--- NOTE | 2019-06-24 01:54 | NUR ---
PT STILL AWAKE AT THIS TIME, WAS GIVEN ATIVAN IVP FOR THE 2ND TIME FRO ANXIETY/AGITATION . WILL CONTINUE TO MONITOR.
--- NOTE | 2019-06-24 03:00 | NUR ---
USES URIANL FOR BLADDER ELIMINATION. KEPT CLEAN AND DRY. CALL LIGHT WITHIN EASY REACH.
[2019-06-24 05:34] VITALS: BP 115/78
--- NOTE | 2019-06-24 05:45 | NUR ---
TOLERATED ORAL FLUIDS, NO S/S OF ASPIRATION NOTED. DUE MEDICATIONS GIVEN ORDERED. NO S/S OF ASPIRATION NOTED.
[2019-06-24 07:01] LABS: BASOPHIL % 0.3 % (0-2)
--- NOTE | 2019-06-24 07:25 | NUR ---
RECEIVED PT FROM ELECTRONIC RESOURCES LIBRARIAN NURSE. PT IN BED SLEEPING, AROUSABLE, RESP E/U ON RA. NO SIGNS OF ACUTE DISTRESS NOTED. ON TELE 16 SHOWING A-FIB, HR: 75. IV TO LAC SALINE LOCKED W/ NO ERYTHEMA OR EDEMA. DRESSING TO BLE CDI. BED IN LOWEST POSITION AND CALL LIGHT WITHIN REACH. CONTACT PRECAUTIONS FOR MRSA NARES IN PLACE. WILL CONTINUE TO MONITOR.
[2019-06-24 07:37] LABS: PLATELET COUNT 117 x10^3mcL (130-400); RED CELL DISTRIBUTION WIDTH 17.5 % (11.5-14.5)
[2019-06-24 07:52] LABS: CALCIUM 8.3 mg/dL (8.5-10.1); CARBON DIOXIDE 25.1 mmol/L (21-32); CHLORIDE SERUM 95 mmol/L (98-107); CREATININE SERUM 0.7 mg/dL (0.7-1.3); GFR1 > 60 mL/min; GLUCOSE SERUM 125 mg/dL (74-106); MAGNESIUM 1.9 mg/dL (1.8-2.4); PHOSPHOROUS 3.2 mg/dL (2.5-4.9); POTASSIUM SERUM 3.6 mmol/L (3.5-5.1); SODIUM SERUM 126 mmol/L (136-145)
[2019-06-24 08:05] VITALS: BP 104/69
[2019-06-24 12:12] VITALS: BP 111/66
--- NOTE | 2019-06-24 12:50 | NUR ---
PT RESTING IN BED, AOX4, RESP E/U ON RA. DENIES NAUSEA, PAIN OR SOB. NO ACUTE DISTRESS NOTED. BED IN LOWEST POSITION AND CALL LIGHT WITHIN REACH. WILL CONTINUE TO MONITOR.
--- NOTE | 2019-06-24 16:00 | NUR ---
PT SEEN AT BEDSIDE W/ SHAYY BLANCO. DRESSING REMOVED, NO ACTIVE WOUNDS, BLEEDING OR DRAINAGE OBSERVED TO BLE. 3+ EDEMA TO BLE W/ ERYTHEMA AND DRY, SCALY SKIN NOTED. UNNA BOOT APPLIED, COVERED W/ KERLIX AND TAMEKA WRAP. PT DENIES PAIN. WILL CONTINUE TO MONITOR.
--- NOTE | 2019-06-24 16:04 | NUR ---
SKIN ASSESSMENT TO BLE, DRY XEROSIS SKIN, LYMPHEDEMA LIKED, +2 EDEMA, NO OPEN ACTIVE WOUND, LEFT LATERAL KIMI-ANKLE DRY SCAB WITH HYPER-PIGMENTATION TO KIMI-WOUND SKIN, DRY FUNGAL LIKED TOE NAILS X10. WOUND CARE TO BLE WITH UNNA BOOT APPLIED PER DR. DIALLO ORDER. RECOMMENDATION TO DRESSING CHANGE WEEKLY BY PRIMARY RN, PER PT. IT SHOULD BE DONE Q3 DAYS. CLARIFICATION TO VERIFY FREQUENCY WITH DR. DIALLO, WAS PAGED @3941. PRIMARY RN NOTIFY AND WILL FOLLOW UP.
--- NOTE | 2019-06-24 16:32 | NUR ---
SPOKE W/ DR. DIALLO TO FOLLOW UP REGARDING DRESSING CHANGE FREQUENCY. STATED TO FOLLOW SHAYY BLANCO'S RECOMMENDATION. DRESSING CHANGE TO BE DONE WEEKLY OR NEEDED BY PRIMARY NURSE.
[2019-06-24 16:57] VITALS: BP 108/73
--- NOTE | 2019-06-24 17:40 | NUR ---
ASSISTED PT W/ SETTING UP DINNER. SITTING UPRIGHT IN BED, AOX4, RESP E/U ON RA. DENIES HEADACHE/DIZZINESS, NAUSEA OR PAIN. NO ACUTE DISTRESS NOTED. IV TO LAC AND RAC SALINE LOCKED. IVF INFUSING WELL TO L HAND. DRESSING TO BLE CDI. BED IN LOWEST POSITION AND CALL LIGHT WITHIN REACH. WILL ENDORSE TO ONCOMING NURSE.
--- NOTE | 2019-06-24 20:01 | NUR ---
PT SITTING UP ON BED, HAD PULLED OUT IV TO LEFT HAND. STATED HE NEEDS TO GO TO LOBBY, STATED WANTS TO GO HOME. PT APPEARS SOMEWHAT CONFUSED. INSISTED ON WALKING TO RESTROOM, ASSISTED TO RESTROOM, VOIDED. INSISTED ON WALKING TO STATION AND TALKING WITH CHARGE NURSE. SONIYA KUHN TALKED TO PT. PT STATED HE WANTS TO SPEAK WITH HIS MOTHER. ABLE TO SPEAK WITH HIS MOTHER. PT STATED HE WANTS TO GO HOME, PT'S MOTHER STATED SHE IS UNABLE TO TAKE CARE OF HIM. PT AGREED TO GO TO ROOM, PT'S MOTHER TO COME. TRANSFERRED PT TO ROOM 246 TO BE CLOSE TO STATION.
[2019-06-24 21:05] VITALS: BP 114/78
--- NOTE | 2019-06-24 21:18 | NUR ---
PT'S MOTHER CAME OVER. PT HAS AGREED TO STAY THE NIGHT. PT CALM AT THIS TIME. TOOK DUE PO MEDS.
--- NOTE | 2019-06-24 22:21 | NUR ---
PT'S MOTHER EXPRESSED THAT PT MAY BE WITHDRAWING FROM ALCOHOL SINCE PT LAST DRINK WAS [address] GÓMEZ. NEW ORDER RECEIVED.
--- NOTE | 2019-06-24 22:36 | NUR ---
EYES CLOSED, BREATHING EVEN AND UNLABORED. HOB ELEVATED 3ODEG. BED ALARM ON. SIDE RAILS RAISED. BED IN LOWEST POSITION. PT'S MOTHER HAD EARLIER LEFT.
--- NOTE | 2019-06-25 00:11 | NUR ---
PT WAS ASSISTED TO RESTROOM. PASSED A LARGE VOLUME OF SOFT, DARK STOOL. ASSISTED BACK TO BED. BED ALARM ON, CALL LIGHT WITHIN EASY REACH. HOB ELEVATED 30 DEG.
--- NOTE | 2019-06-25 00:27 | NUR ---
WATTCHING TV AT THIS TIME.
--- NOTE | 2019-06-25 02:43 | NUR ---
WAS ASSISTED TO RESTROOM, PASSED STOOL. ASSISTED BACK TO BED. BED ALARM ON, CALL LIGHT WITHIN EASY REACH. HOB KEPT ELEVATED 30 DEG. SIDE RAILS UP.
--- NOTE | 2019-06-25 03:53 | NUR ---
AMBULATED TO RESTROOM WITH ASSISTANCE. PASSED DARK STOOL. ASSISTED BACK TO BED. CALL LIGHT WITHIN EASY REACH. BED ALARM ON.
[2019-06-25 05:54] VITALS: BP 109/67
--- NOTE | 2019-06-25 05:58 | NUR ---
EYES CLOSED, EASILY AWAKENED. CALM AND COOPERATIVE WITH CARE. BREATHING EVEN AND UNLABORED ON ROOM AIR. CALL LIGHT WITHIN EASY REACH. BED ALARM ON
[2019-06-25 06:38] LABS: BASOPHIL % 0.2 % (0-2); PLATELET COUNT 139 x10^3mcL (130-400)
[2019-06-25 07:00] LABS: CALCIUM 8.4 mg/dL (8.5-10.1); CARBON DIOXIDE 25.8 mmol/L (21-32); CHLORIDE SERUM 94 mmol/L (98-107); CREATININE SERUM 0.8 mg/dL (0.7-1.3); GFR1 > 60 mL/min; GLUCOSE SERUM 118 mg/dL (74-106); POTASSIUM SERUM 3.4 mmol/L (3.5-5.1); SODIUM SERUM 128 mmol/L (136-145)
--- NOTE | 2019-06-25 07:05 | NUR ---
RECEIVED PT FROM LINDERMAN OPERATOR NURSE. PT IN BED SLEEPING, AROUSABLE, RESP E/U ON RA. NO SIGNS OF ACUTE DISTRESS NOTED. ON TELE 16 SHOWING A-FIB, HR: 87. IV TO LAC SALINE LOCKED W/ NO ERYTHEMA OR EDEMA. DRESSING TO BLE CDI. CONTACT PRECAUTIONS FOR MRSA NARES IN PLACE. BED IN LOWEST POSTIION AND CALL LIGHT WITHIN REACH. WILL CONTINUE TO MONITOR.
[2019-06-25 07:14] LABS: RED CELL DISTRIBUTION WIDTH 17.6 % (11.5-14.5)
--- NOTE | 2019-06-25 07:19 | NUR ---
EYES CLOSED, BREATHING EVEN AND UNLABORED ON ROOM AIR. IN NO ACUTE DISTRESS. ENDORSED TO NURSE ANTONIA
[2019-06-25 12:16] VITALS: BP 109/66
--- NOTE | 2019-06-25 12:55 | NUR ---
PT IN BED HAVING LUNCH, AOX4, RESP E/U ON RA. STATED HE WANTED GO HOME TODAY AND WAS REQUESTING FOR DISCHARGE. INFORMED PT FOR NEED TO CONTINUE TX AND MONITORING AND THAT THE [employer] OIL CLERK WILL BEGIN DISCHARGE PLANNING TOMORROW. PT BECAME ANXIOUS AND REQUESTED FOR PRN ANXIETY MEDS. ADMINISTERED LIBRIUM ORDERED PER EMAR. BED IN LOWEST POSITION AND CALL LIGHT WITHIN REACH. MOTHER AT BEDSIDE. WILL CONTINUE TO MONITOR.
--- NOTE | 2019-06-25 16:34 | NUR ---
PHYSICAL THERAPY DAILY NOTES CO-SIGN All documentation done by the Machine Sole Leveler for 06/25/19 has been reviewed. I agree with the documentation. Reviewed/Co-Signed by: Mike Connell PT Documentation Done by:ZAC MADRID FOSTER WINDER POC REVIEWED W/ FOSTER WINDER
--- NOTE | 2019-06-25 17:39 | NUR ---
PT IN BED HAVING DINNER, AOX4, RESP E/U ON RA. CALM AT THIS TIME. DENIES NAUSEA, SOB OR PAIN, NO ACUTE DISTRESS NOTED. IV TO LAC SALINE LOCKED W/ NO ERYTHEMA OR EDEMA. DRESSING TO BLE CDI. BED IN LOWEST POSITION AND CALL LIGHT WITHIN REACH. WILL ENDORSE TO ONCOMING NURSE.
[2019-06-25 18:13] VITALS: BP 110/77
--- NOTE | 2019-06-25 19:19 | NUR ---
AWAKE AND ALERT, ABLE TO MAKE NEEDS KNOWN. PT HAS HAD EPISODES OF CONFUSION. SPEECH CLEAR, NO SLURRING OF SPEECH, NO FACIAL DROOP. BREATHING EVEN AND UNLABORED ON ROOM AIR. HOB ELEVATED 30 DEG. CALL LIGHT WITHIN EASY REACH. INSTRUCTED TO ALWAYS CALL IF NEEDING TO GET OUT OF BED. BED ALARM ON. SALINE LOCK TO LEFT AC
[2019-06-25 20:02] VITALS: BP 99/73
--- NOTE | 2019-06-25 22:03 | NUR ---
CALL LIGHT WITHIN EASY REACH, BED ALARM ON.
--- NOTE | 2019-06-25 22:03 | NUR ---
AMBULATED WITH ASSISTANCE TO RESTROOM, PASSED FORMED STOOL. LINENS CHANGED. ASSISTED BACK TO BED.
--- NOTE | 2019-06-25 23:14 | NUR ---
EYES CLOSED, BREATHING EVEN AND UNLBORED ON ROOM AIR. HOB KEPT ELEVATED 30 DEG. CALL LIGHT WITHIN EASY REACH. BED ALARM ON.
[2019-06-26 04:40] VITALS: BP 123/67
--- NOTE | 2019-06-26 05:26 | NUR ---
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 OFFERED TO CHANGE THE DRESSING TO SALINE LOCK TO LEFT AC. PT REFUSED, STATED "I'M GOING HOME ANYWAY".
--- NOTE | 2019-06-26 06:18 | NUR ---
EYES CLOSED, BREATHING EVEN AND UNLABORED ON ROOM AIR. EASILY AWAKENED. CALL LIGHT WITHIN EASY REACH. AFIB ON TELE, HR 90/MIN. BED ALARM ON.
[2019-06-26 06:40] LABS: CALCIUM 8.2 mg/dL (8.5-10.1); CARBON DIOXIDE 24.8 mmol/L (21-32); CHLORIDE SERUM 93 mmol/L (98-107); CREATININE SERUM 0.7 mg/dL (0.7-1.3); GFR1 > 60 mL/min; GLUCOSE SERUM 105 mg/dL (74-106); POTASSIUM SERUM 3.2 mmol/L (3.5-5.1); SODIUM SERUM 125 mmol/L (136-145)
--- NOTE | 2019-06-26 07:15 | NUR ---
AWAKE AND ALERT, BREATHING EVEN AND UNLABORED. IN NO ACUTE DISTRESS. BED ALARM ON. CALL LIGHT WITHIN EASY REACH. ENDORSED TO NURSE ANNEL
--- NOTE | 2019-06-26 07:25 | NUR ---
RECEIVED PT RESTING IN BED. RESP EVEN AND UNLABORED ON RA. A-FIB ON TELE #[id number], HR 88. VOIDING FREELY USING URINAL. FALL PRECAUTIONS. AMBULATORY WITH ASSIST. DRESSINGS TO BLE C/D/I. HOB ELEVATED. BED IN LOW POSITION, CALL LIGHT WITHIN REACH. WILL CONTINUE TO MONITOR.
[2019-06-26 07:47] LABS: BASOPHIL % 0.4 % (0-2); PLATELET COUNT 153 x10^3mcL (130-400); RED CELL DISTRIBUTION WIDTH 17.1 % (11.5-14.5)
[2019-06-26 08:35] VITALS: BP 130/70
[2019-06-26 11:43] VITALS: BP 120/72
--- NOTE | 2019-06-26 13:22 | NUR ---
PT RESTING IN BED WATCHING TV. NO ACUTE DISTRESS. RESP EVEN AND UNLABORED ON RA. HOB ELEVATED. FALL PRECAUTIONS. AMBULATORY WITH ASSIST. DRESSING TO BLE C/D/I. CALL LIGHT WITHIN REACH. WILL CONTINUE TO MONITOR.
--- NOTE | 2019-06-26 15:16 | NUR ---
1. Recommend continue with cardiac diet.
--- NOTE | 2019-06-26 15:16 | NUR ---
Follow-up Nutrition Assessment- Jw Negrete 246T-B Dx: GI bleed Labs: (06/26) Na:125L, K:3.2L, Ca:8.2L, H/H: 8.7/26L Meds: Aldactone, Bactroban, Cephulac, Ferrous sulfate, Folic acid, Inderal, Librium, Lipitor, Tylenol, Vitamin B-1, Zofran, Zoloft Diet: Cardiac PO intake: (06/24) B:80% D:100% (06/25) B:80% L:80% (06/26) B:100% Weights: (06/23) 164kg (06/26) 165kg Skin: erythema, dry scaly skin to BLE Edema: +3 to BLE Last BM: 06/26 Per progress note 06/26, pt with no s/s of DT's, however, pt is persistently hyponatremic. FUR STYLIST spoke to Dr. Stevenson and possible SIADH, osmolarity urine ordered and pending. D/C planning once cleared by GI. Pt reports to having a good appetite with no c/o GI issues. Will continue to monitor. Estimated Nutritional Needs based on IBW:95kg Energy: 2375-2850kcal/day (25-30kcal/kg for maintenance) Protein: 95g/day (1g/kg for maintenance) Fluid: 2375-2850ml/day (1ml/kg) or per MD Nutrition Diagnosis 1. Altered nutrition related labs related to possible SIADH as evidenced by Na: 125L. Intervention/RDN Recommendation(s): 1. Recommend continue with cardiac diet. Monitor/Evaluate Previous goal: PO intakes to meet at least 75% of estimated needs with acceptable tolerance within days. (met) Goal: PO intakes to meet at least 75% of estimated needs with acceptable tolerance within days and Na WNL Monitor: PO intake, Labs, GI function, Skin integrity, Weights and Na level F/U in 7 days as low risk (07/03)
[2019-06-26 15:57] VITALS: BP 128/84
[2019-06-26] MEDS ORDERED: FLE10 PO (18:14)
[2019-06-26] MEDS ORDERED: MOBIC15 MG PO (18:14)
--- NOTE | 2019-06-26 18:39 | NUR ---
PT RESTING IN BED. NO ACUTE DISTRESS. AAOX4. RESP EVEN AND UNLABORED ON RA. NO C/O PAIN. TAMEKA WRAP TO LLE CHANGED, DRESSING TO RLE C/D/I. IV TO LAC, NO REDNESS OR SWELLING NOTED. AMBULATORY WITH ASSIST, USES WALKER. FALL PRECAUTIONS. HOB ELEVATED. BED IN LOW POSITION, CALL LIGHT WITHIN REACH. WILL ENDORSE TO ONCOMING SHIFT.
--- NOTE | 2019-06-26 19:14 | NUR ---
AWAKE AND ALERT, HOB ELEVATED 30 DEG. CALL LIGHT WITHIN EASY REACH. BREATHING EVEN AND UNLABORED ON ROOM AIR. STATED DOES NOT WANT ANY LIBRIUM TONIGHT. STATED WOULD LIKE TO RECEIVE MOBIC AND FLEXERIL PER HIS HOME MED. HOME MED RECONCILIATION UPDATED BY NURSE ANNEL. WILL INFORM NIGHT RESIDENT. UNNA BOOTS IN PLACE TO BILATERAL LOWER EXTREMITIES, TO BE CHANGED WEEKLY. LAST DRESSING CHANGE WAS 06/24/19. SALINE LOCK TO LEFT AC.
--- NOTE | 2019-06-26 19:39 | NUR ---
INFORMED DR. FAM HOME MED RECONCILIATION HAS BEEN UPDATED. PT ASKING FOR MOBIC AND FLEXERIL TONIGHT.
[2019-06-26 19:44] VITALS: BP 124/85
--- NOTE | 2019-06-26 19:58 | NUR ---
EXPLAINED TO PT MOBIC CONTRAINDICATED FOR GI BLEED. VERBALIZED UNDERSTANDING. EXPLAINED MAY HAVE NORCO TABLET IF IN PAIN. VERBALIZED UNDERSTANDING. PT STATED HE WOULD LIKE TO TAKE HIS DUE MEDICATIONS AT 10PM
--- NOTE | 2019-06-26 22:00 | NUR ---
MEE GOODWIN WAS IN PT'S ROOM, SPOKE WITH PT. HE THEN SPOKE WITH RESIDENT DR. FAM. PER DR. COLLINS, LOW SERUM NA IS PSEUDOHYPONATREMIA. PT EXPRESSED DESIRE TO GO HOME. PER DR. FAM, DISCHARGE DECISIONS TO BE MADE IN AM BY ATTENDING. EXPLAINED TO PT AND PT'S MOTHER. VERBALIZED UNDERSTANDING.
--- NOTE | 2019-06-26 22:10 | NUR ---
PT REITERATED DOES NOT WANT ANY LIBRIUM TONIGHT. ASKED FOR FLEXERIL ADMINISTERED ORDERED. PT INSISTED NOT TO HAVE BED ALARM PLACED ON TONIGHT. PT AWAKE AND ALERT, ORIENTED TO NAME, PLACE, TIME AND SITUATION.
--- NOTE | 2019-06-26 22:30 | NUR ---
REMOVED OPTIFOAM FROM BUTTOCKS/SACRUM. NOTED BLANCHABLE REDNESS. HYGIENE NEEDS ATTENDED TO. MOISTURE BARRIER CREAM APPLIED. NEW OPTIFOAM APPLIED TO SACRUM/COCCYX. TURNED AND REPOSITIONED. HOB KEPT ELEVATED 30 DEG. PILLOW PLACED BETWEEN LEGS. PILLOW UNDER FEET.
--- NOTE | 2019-06-27 00:31 | NUR ---
EYES CLOSED, HOB ELEVATED 30 DEG. BREATHING EVEN AND UNLABORED ON ROOM AIR. CALL LIGHT WITHIN EASY REACH
--- NOTE | 2019-06-27 00:58 | NUR ---
PT AMBULATED TO RESTROOM. VOIDED, URINE SPECIMEN COLLECTED, SENT TO LAB
--- NOTE | 2019-06-27 02:53 | NUR ---
AMBULATED TO RESTROOM. VOIDED
[2019-06-27 05:02] VITALS: BP 111/77
--- NOTE | 2019-06-27 06:13 | NUR ---
EYES CLOSED, EASILY AWAKENED. BREATHING EVEN AND UNLABORED ON ROOM AIR. SLEPT THROUGH MOST OF SHIFT. CALL LIGHT WITHIN EASY REACH.
[2019-06-27 06:34] LABS: BASOPHIL % 0.5 % (0-2); PLATELET COUNT 171 x10^3mcL (130-400)
[2019-06-27 07:06] LABS: CALCIUM 8.3 mg/dL (8.5-10.1); CARBON DIOXIDE 23.9 mmol/L (21-32); CHLORIDE SERUM 94 mmol/L (98-107); CREATININE SERUM 0.7 mg/dL (0.7-1.3); GFR1 > 60 mL/min; GLUCOSE SERUM 92 mg/dL (74-106); POTASSIUM SERUM 3.5 mmol/L (3.5-5.1); SODIUM SERUM 126 mmol/L (136-145)
--- NOTE | 2019-06-27 07:14 | NUR ---
AWAKE AND ALERT, EAGER TO GO HOME. IN NO ACUTE DISTRESS. ENDORSED TO NURSE GREG
[2019-06-27 07:35] VITALS: BP 118/88
--- NOTE | 2019-06-27 08:06 | NUR ---
AAO TIMES 4. MED SURG PATIENT. LUNGS CTA. NO SOB. O2 SAT ON RA 97%. BS'S ACTIVE TIMES 4. MAJANO WITH GENERALIZED WEAKNESS. PERIPHERAL PULSES PALPABLE. EVELYN BOOTS BLE. IV SITE TO LAC PATENT, CDI. COOPERATIVE.
[2019-06-27] MEDS ORDERED: LINEZOLID600 MG PO (09:25)
[2019-06-27] MEDS ORDERED: PROPRANOLOL HCL20 MG PO (09:26)
[2019-06-27] MEDS ORDERED: SPIRONOLACTONE100 MG PO (09:27)
[2019-06-27 10:36] VITALS: BP 118/88
== END 2019-06-27 12:10 | disposition home or self-care (01) | DRG 280 ==
LOC: ED 21:45 → IC 06-22 00:48 → DU 06-23 17:11 → IC 06-23 17:15 → DU 06-23 18:16 → MU 06-26 17:18
PROVIDERS: Emergency Medicine; Internal Medicine; Internal Medicine Gastroenterology; ADMIT General Practice
PROC: 30233N1 Transfusion of Nonautologous Red Blood Cells into Peripheral Vein, Percutaneous Approach (ICD-10-PCS; 2019-06-22)
PROC: 06L38CZ Occlusion of Esophageal Vein with Extraluminal Device, Via Natural or Artificial Opening Endoscopic (ICD-10-PCS; principal; 2019-06-23 07:30)
DX: K70.30 Alcoholic cirrhosis of liver without ascites (principal); I85.11 Secondary esophageal varices with bleeding; D68.4 Acquired coagulation factor deficiency; E87.8 Other disorders of electrolyte and fluid balance, not elsewhere classified; E44.1 Mild protein-calorie malnutrition; E83.51 Hypocalcemia; D62 Acute posthemorrhagic anemia; E87.1 Hypo-osmolality and hyponatremia; F10.20 Alcohol dependence, uncomplicated; I48.91 Unspecified atrial fibrillation; Y90.0 Blood alcohol level of less than 20 mg/100 ml; Z68.41 Body mass index [BMI] 40.0-44.9, adult; Z86.711 Personal history of pulmonary embolism; Z79.01 Long term (current) use of anticoagulants; I11.0 Hypertensive heart disease with heart failure; E78.00 Pure hypercholesterolemia, unspecified; Z80.42 Family history of malignant neoplasm of prostate; Z80.41 Family history of malignant neoplasm of ovary; F32.9 Major depressive disorder, single episode, unspecified; I50.42 Chronic combined systolic (congestive) and diastolic (congestive) heart failure; E66.9 Obesity, unspecified
CPT/HCPCS: 43235; 83880; 97110-GP; 97116-GP; 97530-GP; C9113; G0378; G0480; J0171; J0696; J1200; J1610; J1940; J2020; J2060; J2250; J2310; J2354; J2405; J2765; J3010; J3490; J7030; J7040; J7050; P9016; Q0092; Q0163